=== PATIENT | male | born 1955 | race Caucasian/White ===

== ENCOUNTER 2017-06-02 11:20 | Day surgery (SDC) | payer BC ==
[~2017-06-02] VITALS: Ht 185.4 cm; Wt 97.0 kg
[2017-06-02] VITALS (9 sets, daily range): BP systolic 116–143; BP diastolic 66–87; PULSE 50–71; TEMP 97.2–97.3
[~2017-06-02 11:20] MED LIST: NASONEX SPRAY
[2017-06-02] MEDS ORDERED: PRILOTC PO (12:03)
[2017-06-02] MEDS ORDERED: NORCO 325 MG-51 TAB PO (17:27)
== END 2017-06-02 19:20 | disposition home or self-care (01) ==
LOC: SDCO 11:20
DX: K40.91 Unilateral inguinal hernia, without obstruction or gangrene, recurrent (principal); D17.6 Benign lipomatous neoplasm of spermatic cord; K21.9 Gastro-esophageal reflux disease without esophagitis; J45.909 Unspecified asthma, uncomplicated; Z85.828 Personal history of other malignant neoplasm of skin; Z80.42 Family history of malignant neoplasm of prostate; Z83.3 Family history of diabetes mellitus
CPT/HCPCS: C1781; J0690; J1100; J1885; J2250; J2405; J2704; J2710; J3010; J7120